=== PATIENT | female | born 1975 | race Caucasian/White ===

== ENCOUNTER 2020-02-10 22:07 | Emergency (ER) | payer BC ==
[~2020-02-10] VITALS: Ht 167.6 cm; Wt 90.9 kg
[2020-02-10 22:16] VITALS: BP 141/75
--- NOTE | 2020-02-10 22:27 | PHYS DOC ---
General Adult EDM: Chief Complaint: DENTAL PROBLEM HPI: HPI: Patient is a 44 year old female who presents to the ED today complaining of moderate pain to the left lower gum that began in the spring but has gotten worse today. Patient denies any fever or trismus. She states she was seen by her own dentist who referred her to an oral surgeon for extraction, she states she saw the oral surgeon who quoted a ridiculous camacho for extraction. She states she has an appointment with another dentist in February. Review of Systems: Review of Systems: Constitutional: Denies fever or chills. [] HENT: Reports left lower gum dental pain Musculoskeletal: Denies back pain or joint pain. [] Integument: Denies rash. [] Neurologic: Denies headache, focal weakness or sensory changes. [] Psychiatric: Denies depression or anxiety. [] Heart Score: Risk Factors: Risk Factors: DM, Current or recent (<one month) smoker, HTN, HLP, family history of CAD, obesity. Risk Scores: Score 0 - 3: 2.5% MACE over next 6 weeks - Discharge Home Score 4 - 6: 20.3% MACE over next 6 weeks - Admit for Clinical Observation Score 7 - 10: 72.7% MACE over next 6 weeks - Early Invasive Strategies Physical Exam: PE: Constitutional: Well developed, well nourished, no acute distress, non-toxic appearance. [] HENT: Normocephalic, atraumatic, bilateral external ears normal, oropharynx moist, no oral exudates, nose normal. [] [place] teeth on the left on the left lower gum is broken and decayed. No gum erythema, Skin: Warm, dry, no erythema, no rash. [] Back: No tenderness, no CVA tenderness. [] Extremities: No tenderness, no cyanosis, no clubbing, ROM intact, no edema. [] Neurologic: Alert and oriented X 3, normal motor function, normal sensory function, no focal deficits noted. [] Psychologic: Affect normal, judgement normal, mood normal. [] EKG: EKG: [] Radiology/Procedures: Radiology/Procedures: [] Course & Med Decision Making: Course & Med Decision Making Pertinent Labs and Imaging studies reviewed. (See chart for details) Patient has dental pain with dental decay, discharged on amoxicillin. Follow-up with a dentist in February as scheduled. Dragon Disclaimer: [place] Disclaimer: This electronic medical record was generated, in whole or in part, using a voice recognition dictation system. Departure Departure Impression: Primary Impression: Infected dental caries Additional Impression: Dentalgia Disposition: HOME, SELF-CARE Condition: STABLE Patient Instructions: Dental Caries Additional Instructions: Please follow-up with your dentist as scheduled in February. Come back to the ED at any point symptoms worsen. Scripts Hydrocodone/Apap 5-325 (NORCO 5-325 TABLET) 1 Each Tablet 1 TAB PO Q6-8HRS PRN for PAIN, #12 TAB Prov: YESI SIN APRN 02/10/20 Amoxicillin (AMOXICILLIN) 875 Mg Tablet 1 TAB PO BID, #20 TAB Prov: YESI SIN APRN 02/10/20 Justicifation of Admission Dx: Justifications for Admission: Justification of Admission Dx: N/A YESI SIN APRN Feb 10, 2020 22:27
[2020-02-10] MEDS ORDERED: AMOX875T PO (22:31)
[2020-02-10] MEDS ORDERED: HYDR-3164 PO (22:43)
== END 2020-02-10 22:47 | disposition home or self-care (01) ==
LOC: ER 22:07
DX: K04.7 Periapical abscess without sinus (principal)
CPT/HCPCS: 99283

== ENCOUNTER 2020-04-11 17:46 | Emergency (ER) | payer BC ==
[~2020-04-11] VITALS: Ht 167.6 cm; Wt 86.8 kg
[~2020-04-11 17:46] MED LIST: AMOX875T PO; HYDR-3164 PO
[2020-04-11 18:04] VITALS: BP 124/77
[2020-04-11] MEDS ORDERED: DICL50TA2 PO (18:18)
[2020-04-11] MEDS ORDERED: CYCL10TA2 PO (18:18)
[2020-04-11] MEDS ORDERED: METH4TAB2 PO (18:18)
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
== END 2020-04-11 18:40 | disposition home or self-care (01) ==
LOC: ER 17:46
DX: M54.5 Low back pain (principal); E78.00 Pure hypercholesterolemia, unspecified; G89.11 Acute pain due to trauma; V43.52XA Car driver injured in collision with other type car in traffic accident, initial encounter; Y92.488 Other paved roadways as the place of occurrence of the external cause; Y93.89 Activity, other specified; Y99.8 Other external cause status
CPT/HCPCS: 99283